=== PATIENT | male | born 1950 | race Caucasian/White ===

== ENCOUNTER 2019-04-14 13:22 | Outpatient (RCR) | payer MEDICARE, BC | END 2019-07-13 | disposition home or self-care (01) | LOC: ONC 13:22 | PROVIDERS: ATTEND Radiology Radiation Oncology | DX: Z01.89 Encounter for other specified special examinations (principal) | CPT/HCPCS: 99205 ==

== ENCOUNTER 2019-07-14 09:42 | Outpatient (RCR) | payer MEDICARE, BC ==
[2019-09-21] MEDS ORDERED: ASPI-586 PO (10:22)
[2019-09-21] MEDS ORDERED: AMLO-167 PO (10:22)
[2019-09-21] MEDS ORDERED: ALLO300T2 PO (10:22)
[2019-09-21] MEDS ORDERED: CLON0.2T PO (10:22)
[2019-09-21] MEDS ORDERED: APIX5TAB PO (10:22)
[2019-09-21] MEDS ORDERED: ATEN50TA PO (10:22)
[2019-09-21] MEDS ORDERED: DILT-28 PO (14:28)
[2019-09-29] MEDS ORDERED: TMSL.4C PO (08:00)
[2019-09-29] MEDS ORDERED: SULF1TAB35 PO (08:00)
[2019-09-29] MEDS ORDERED: PHEN-640 PO (08:00)
== END 2019-10-12 | disposition home or self-care (01) ==
LOC: ONC 09:42
PROVIDERS: ATTEND Radiology Radiation Oncology
DX: C61 Malignant neoplasm of prostate (principal)
CPT/HCPCS: 76873

== ENCOUNTER 2019-09-24 08:05 | Outpatient (RCR) | payer MEDICARE ==
[2019-09-21 10:25] VITALS: BP 129/83
[~2019-09-24] VITALS: Ht 190 cm; Wt 128.0 kg
[~2019-09-24 08:05] MED LIST: ALLO300T2 PO; AMLO-167 PO; APIX5TAB PO; ASPI-586 PO; ATEN50TA PO; CLON0.2T PO; DILT-28 PO
== END 2019-09-24 14:29 | disposition home or self-care (01) ==
LOC: PREOP 08:05
PROVIDERS: ATTEND Urology
DX: Z01.812 Encounter for preprocedural laboratory examination (principal); Z11.59 Encounter for screening for other viral diseases; C61 Malignant neoplasm of prostate
CPT/HCPCS: 87081; 87635

== ENCOUNTER 2019-09-29 06:10 | Day surgery (SDC) | payer BC, MEDICARE ==
[2019-09-29] VITALS (11 sets, daily range): BP systolic 114–161; BP diastolic 71–98
[~2019-09-29] VITALS: Ht 190 cm; Wt 128.0 kg
[2019-09-29] MEDS ORDERED: LEVOFLOXACIN 500 MG/100 ML IV 100 ML IV ONE (06:15)
--- OUTSIDE RECORDS SUMMARY | 2019-09-29 06:18 | XMS REPORT | Continuity of Care Document ---
Author Organization Unknown Address Unknown Phone Unavailable Allergies Active Description Code Type Severity Reaction Onset Reported/Identified Relationship to Patient Clinical Status Yes No Known Drug Allergies [id number] Drug Allergy Unknown N/A 09/21/2019 Medications There is no data. Problems Date Dx Coded Attending Type Code Diagnosis Diagnosed By 05/24/2019 CLARIBEL HUMPHRIES MD Ot Z01.8 9 ENCOUNTER FOR OTHER SPECIFIED SPECIAL EX 07/12/2019 CLARBIEL HUMPHRIES MD Ot Z01.8 9 ENCOUNTER FOR OTHER SPECIFIED SPECIAL EX 07/13/2019 CLARIBEL HUMPHRIES MD Ot Z01.8 9 ENCOUNTER FOR OTHER SPECIFIED SPECIAL EX 08/04/2019 CLARIBEL HUMPHRIES MD Ot Z01.8 9 ENCOUNTER FOR OTHER SPECIFIED SPECIAL EX 08/23/2019 CLARIBEL HUMPHRIES MD Ot C61 MALIGNANT NEOPLASM OF PROSTATE 09/21/2019 CLARIBEL HUMPHRIES MD Ot C61 MALIGNANT NEOPLASM OF PROSTATE Procedures There is no data. Results Test Result Range Methicillin resistant Staphylococcus aur eus (MRSA) screening culture - 09/21/19 10:45 Methicillin resistant Staphylococcus aureus (MRSA) scr eening culture NEG NRG Coronavirus SARS-CoV-2 SO 2018 - 0 13:07 Coronavirus Ab [Units/volume] in Serum Negative Negative Encounters ACCT No. Visit Date/Time Discharge Status Pt. Type Provider Facility Loc./Unit Complaint [id number] 09/24/2019 08:05:00 020 14:29:00 DIS Outpatient MIRA BAUMAN MD [facility] PREOP PROSTATE CANCER [id number] 07/28/2019 09:30:00 23:59:59 CLS Preadmit MIRA BAUMAN MD [facility] PROSTATE CANCER [id number] 07/14/2019 09:42:00 23:59:59 CLS Outpatient CLARIBEL HUMPHRIES MD [facility] ONC [id number] 04/14/2019 13:22:00 020 00:01:00 DIS Outpatient KRISTEL CARTER, CLARIBEL Ball [facility] ONC
[2019-09-29] MEDS ORDERED: CATHETER FLUSH 10 ML SYR IV PRN (06:45)
--- NOTE | 2019-09-29 06:56 | Progress Note-Pre Operative ---
Pre-Operative Progress Note H&P Reviewed The H&P was reviewed, patient examined and no changes noted. Date Seen by Provider: Sep 29, 2019 Time Seen by Provider: 06:56 Date H&P Reviewed: Sep 29, 2019 Time H&P Reviewed: 06:56 Pre-Operative Diagnosis: CA PROSTATE MIRA BAUMAN MD Sep 29, 2019 06:56
--- NOTE | 2019-09-29 07:00 | Progress Note-Post Operative ---
Post-Operative Progess Note Surgeon (s)/Grooming Assistant (s) Surgeon MIRA BAUMAN MD Grooming Assistant: KRISTEL Pre-Operative Diagnosis CA PROSTATE Post-Operative Diagnosis SAME Procedure & Operative Findings Date of Procedure 09/29/19 Procedure Performed/Findings BRACHYTHERAPY, CYSTOGRAM, AND SPACE OAR Anesthesia Type GENERAL Estimated Blood Loss Estimated blood loss (mL): NEGLIGIBLE Specimens/Packing Specimens Removed NONE Packing: NONE MIRA BAUMAN MD Sep 29, 2019 07:00
[2019-09-29] MEDS: LACTATED RINGERS 1,000 ML IV PRN ×2 (07:01→07:48)
[2019-09-29] MEDS ORDERED: fentaNYL INJECTION 100 MCG/2 ML AMP ONE (07:03)
[2019-09-29] MEDS ORDERED: MIDAZOLAM 2 MG/2 ML (VERSED) VIAL ONE (07:03)
--- NOTE | 2019-09-29 07:05 | Discharge Inst-Urology ---
Discharge Inst-Urology Reconcile Patient Problems Problems Reviewed?: Yes Final Diagnosis CA PROSTATE Patient Instructions/Follow Up Plan/Assessment/Instructions Discharge with beckett and leg bag day time and large bag night time with instructions Patient to come to office friday 9am to DC Beck[place] or do it himself. Rest till then Please make appointment to been seen in office in 4 weeks. May resume ASA and Eliquis in 72 hours if no bleedings Showers, no bath Keep bowels soft and moving Increase oral fluids for 48 hours and then as needed. Diet as tolerated. If questions or concerns contact your physician Or seek help at emergency department. MIRA BAUMAN MD Sep 29, 2019 07:05
[2019-09-29] MEDS ORDERED: SEVOFLURANE (ULTANE) 15 ML INHAL SOLN ONE ×5 (07:59→08:38)
[2019-09-29] MEDS ORDERED: proPOfol 200 MG/20 ML (DIPRIVAN) VIAL IV ONE (07:59)
[2019-09-29] MEDS ORDERED: ONDANSETRON 4 MG/2 ML (SDV) Z0FRAN ONE (07:59)
[2019-09-29] MEDS ORDERED: DEXAMETHASONE 10 MG/ML (DECADRON) 1 ML VIAL ONE (07:59)
[2019-09-29] MEDS ORDERED: LIDOCAINE PF 2% 5 ML (XYLOCAINE) VIAL ONE (07:59)
[2019-09-29] MEDS ORDERED: SULF1TAB35 PO (08:00)
[2019-09-29] MEDS ORDERED: TMSL.4C PO (08:00)
[2019-09-29] MEDS ORDERED: PHEN-640 PO (08:00)
[2019-09-29] MEDS ORDERED: BACITRACIN OINTMENT 28 GM TUBE ONE (08:30)
[2019-09-29] MEDS ORDERED: IOPAMIDOL 61% 30 ML (ISOVUE 300) VIAL ONE (08:30)
--- NOTE | 2019-09-29 09:20 | Diagnostic Imaging Report ---
INDICATION: Fluoroscopy for brachytherapy. TECHNIQUE/FINDINGS: Fluoroscopy was provided for brachytherapy. 17 seconds of fluoroscopic time was utilized. A single image over the prostate gland was obtained demonstrating multiple radiation seed implants. IMPRESSION: Fluoroscopy for brachytherapy. Dictated by: Dictated on workstation # [id number]
[2019-09-29] MEDS ORDERED: PHENAZOPYRIDINE 100 MG (PYRIDIUM) TABLET ONE (09:41)
[2019-09-29] MEDS ORDERED: PHENAZOPYRIDINE 100 MG (PYRIDIUM) TABLET PO ONE (09:45)
--- NOTE | 2019-09-29 12:51 | Anesthesia-General Post-Op ---
General Patient Condition Mental Status/LOC: Same as Preop Cardiovascular: Satisfactory Nausea/Vomiting: Absent Respiratory: Satisfactory Pain: Controlled Complications: Absent Post Op Complications Complications None Follow Up Care/Instructions Patient Instructions None needed. Anesthesia/Patient Condition Patient Condition Patient is doing well, no complaints, stable vital signs, no apparent adverse anesthesia problems. No complications reported per nursing. DONTA RUSS CRNA Sep 29, 2019 12:51
== END 2019-09-29 10:45 | disposition home or self-care (01) ==
LOC: SDC 06:10 → EDSTATUS 08:00 → SDC 10:45
PROVIDERS: ATTEND Urology
DX: C61 Malignant neoplasm of prostate (principal); I10 Essential (primary) hypertension; I25.10 Atherosclerotic heart disease of native coronary artery without angina pectoris; I48.91 Unspecified atrial fibrillation; M10.9 Gout, unspecified; M19.90 Unspecified osteoarthritis, unspecified site; K21.9 Gastro-esophageal reflux disease without esophagitis; G47.33 Obstructive sleep apnea (adult) (pediatric); Z85.828 Personal history of other malignant neoplasm of skin; Z96.612 Presence of left artificial shoulder joint; Z98.52 Vasectomy status; Z79.899 Other long term (current) drug therapy; Z79.82 Long term (current) use of aspirin; Z79.01 Long term (current) use of anticoagulants; Z99.89 Dependence on other enabling machines and devices; Z80.42 Family history of malignant neoplasm of prostate; Z80.3 Family history of malignant neoplasm of breast
CPT/HCPCS: 76000; 76965; 77290; 77318; 77332; 77370; 77470; 77778; 93005

== ENCOUNTER 2020-01-11 09:44 | Outpatient (RCR) | payer MEDICARE, BC ==
[~2020-01-11 09:44] MED LIST changes: +PHEN-640 PO; +SULF1TAB35 PO; +TMSL.4C PO
== END 2020-01-25 | disposition home or self-care (01) ==
LOC: ONC 09:44
PROVIDERS: ATTEND Radiology Radiation Oncology
DX: Z51.0 Encounter for antineoplastic radiation therapy (principal); C61 Malignant neoplasm of prostate
CPT/HCPCS: 77290; 77300; 77301; 77334; 77336; 77338; 77385

== ENCOUNTER 2022-05-07 09:16 | Outpatient (RCR) | payer BC, MEDICARE ==
[~2022-05-07 09:16] MED LIST changes: +CLN.2T PO; -CLON0.2T PO; -SULF1TAB35 PO; +SULF1TAB38 PO
== END 2022-05-28 | disposition home or self-care (01) ==
LOC: ONC 09:16
PROVIDERS: ATTEND Internal Medicine Hematology & Oncology
DX: C61 Malignant neoplasm of prostate (principal)
CPT/HCPCS: 84153; G0463; 99204

== ENCOUNTER 2022-11-05 09:37 | Outpatient (RCR) | payer MEDICARE | END 2022-11-25 | disposition home or self-care (01) | LOC: ONC 09:37 | PROVIDERS: ATTEND Internal Medicine Hematology & Oncology | DX: C61 Malignant neoplasm of prostate (principal) | CPT/HCPCS: 36415; 84153 ==